=== PATIENT | female | born 1990 | race American Indian/Alaskan Native ===

== ENCOUNTER 2020-04-26 16:40 | Emergency (ER) | payer SELFPAY ==
--- NOTE | 2020-04-26 16:55 | Event Note ---
ED Screening Note Date of service: 04/26/20 Time: 16:54 ED Screening Note: 29-year-old -[place] female presents to the emergency room complaining of incomplete treatment for her urinary tract infection as she stopped taking the medication secondary to the pills were too large now she comes in with lower back pain and dysuria. This initial assessment/diagnostic orders/clinical plan/treatment(s) is/are subject to change based on patients health status, clinical progression and re-assessment by fellow clinical providers in the ED. Further treatment and workup at subsequent clinical providers discretion. Patient/guardian urged not to elope from the ED as their condition may be serious if not clinically assessed and managed. Initial orders include:
[2020-04-26 17:44] LABS: Bacteria,Urine 1+ /HPF (Negative); Bilirubin,Urine NEG (Negative); Blood,Urine SM (Negative); Color,Urine Straw (Yellow); Hyaline Casts,Urine 2 /LPF; Urobilinogen,Urine < 2.0 mg/dL (<2.0)
[2020-04-26 17:46] LABS: WBC,Urine > 182.0 /HPF (0.0-6.0)
[2020-04-26 18:32] VITALS: BP 123/87
--- NOTE | 2020-04-26 18:36 | Emergency Department Report ---
ED Female HPI - General Chief complaint: Urogenital-Female Stated complaint: ABD PAIN Source: patient Mode of arrival: Ambulatory Limitations: No Limitations - History of Present Illness Initial comments: 29-year-old -[place]os[place] female presents to the emergency room complaining of incomplete treatment for her urinary tract infection as she stopped taking the medication secondary to the pills were too large now she comes in with lower back pain and dysuria. Onset/Timin -: week(s) Radiation: suprapubic, L flank, R flank Severity scale (0 -10): 6 Quality: sharp, stabbing Consistency: constant Improves with: none Worsens with: none Are you Now?: No Associated Symptoms: abdominal pain. denies: vaginal discharge, vaginal bleeding, nausea/vomiting, fever/chills - Related Data Sexually active: Yes Previous Rx's Medication Instructions Recorded Last Taken Type Azithromycin [Zithromax Tri-Siddharth] 500 mg PO QDAY 3 Days #3 tablet 04/26/20 Unknown Rx Allergies Allergy/AdvReac Type Severity Reaction Status Date / Time No Known Allergies Allergy Unverified 04/26/20 16:42 ED Review of Systems ROS: Stated complaint: ABD PAIN Other details as noted in HPI Comment: All other systems reviewed and negative ED Past Medical Hx - Past Medical History Previous Medical History?: No - Surgical History Past Surgical History?: No - Medications Home Medications: Home Medications Medication Instructions Recorded Confirmed Last Taken Type Azithromycin [Zithromax Tri-Siddharth] 500 mg PO QDAY 3 Days #3 tablet 04/26/20 Unknown Rx ED Physical Exam - General Limitations: No Limitations General appearance: alert, in no apparent distress - Head Head exam: Present: atraumatic, normocephalic - Eye Eye exam: Present: normal appearance - ENT ENT exam: Present: mucous membranes moist - Respiratory Respiratory exam: Absent: accessory muscle use - Back Exam Back exam: Present: normal inspection, full ROM - Neurological Exam Neurological exam: Present: alert, oriented X3, normal gait - Psychiatric Psychiatric exam: Present: normal affect, normal mood - Skin Skin exam: Present: warm, dry, intact, normal color. Absent: rash ED Medical Decision Making - Medical Decision Making 29-year-old -[place] female presents to the emergency room complaining of incomplete treatment for her urinary tract infection as she stopped taking the medication secondary to the pills were too large now she comes in with lower back pain and dysuria. Critical care attestation.: If time is entered above; I have spent that time in minutes in the direct care of this critically ill patient, excluding procedure time. ED Disposition Clinical Impression: Urinary tract infection Disposition: DC-01 TO HOME OR SELFCARE Is pt being admited?: No Does the pt Need Aspirin: No Condition: Stable Instructions: Urinary Tract Infection, Adult, [id number] Additional Instructions: Complete antibiotics as prescribed. Increase your water intake by 4 L daily. Ibuprofen Tylenol or Aleve for pain management. Prescriptions: Azithromycin [Zithromax Tri-Siddharth] 500 mg PO QDAY 3 Days #3 tablet Referrals: [facility] [Provider Group] - 3-5 Days Forms: Work/School Release Form(ED)
== END 2020-04-26 18:43 | disposition home or self-care (01) ==
LOC: ED 16:40
DX: N39.0 Urinary tract infection, site not specified (principal)
CPT/HCPCS: 81001